=== PATIENT | female | born 1945 | race Caucasian/White ===

== ENCOUNTER → 2017-12-06 | Day surgery (SDC) | payer OTHER, MEDICARE ==
[2017-11-09 13:09] LABS: BASO % 0.2 %; BASO ABS # 0.01 K/uL (0-0.2); EOS % 3.7 %; EOS ABS # 0.15 K/uL (0-0.5); HEMATOCRIT 35.8 % (37-47); HEMOGLOBIN 11.8 g/dL (12.0-16.0); IG# 0.01 K/uL (0.00-0.02); LYMPH % 21.4 %; LYMPH ABS # 0.86 K/uL (1.2-3.4); MEAN CORPUSCULAR HEMOGLOBIN 31.3 pg (25-34); MEAN PLATELET VOLUME 8.6 fL (7.4-10.4); MONO % 4.7 %; MONO ABS # 0.19 K/uL (0.11-0.59); NEUT % 69.8 %; PLATELET COUNT 150 K/uL (130-400); RED CELL DISTRIBUTION WIDTH CV 14.2 % (11.5-14.5); RED CELL DISTRIBUTION WIDTH SD 49.2 fL (36.4-46.3); WHITE BLOOD COUNT 4.02 K/uL (4.8-10.8)
[2017-11-09 13:38] LABS: BLOOD UREA NITROGEN 25 mg/dl (7-18); CALCIUM 9.1 mg/dl (8.5-10.1); CARBON DIOXIDE 28 mmol/L (21-32); CREATININE 1.13 mg/dl (0.60-1.20); GLUCOSE 72 mg/dl (70-99); POTASSIUM 4.4 mmol/L (3.5-5.1); SODIUM 139 mmol/L (136-145)
[2017-11-17 10:37] VITALS: BMI 27.0
--- NOTE | 2017-11-22 13:38 | PAT Medication Instructions ---
Service Date Nov 22, 2017. Current Home Medication List Ascorbic Acid (Vitamin C), 1 CAP PO QAM Aspirin (Aspirin Ec), 81 MG PO QAM Clopidogrel (Plavix), 75 MG PO QAM Latanoprost (Xalatan 0.005% Oph Heather), 1 DROPS OPB DAILY Multivitamin (Multivitamin), 1 TAB PO DAILY Pravastatin (Pravachol ), 40 MG PO QPM Probiotic Product (Probiotic), 1 CAP PO DAILY Sertraline (Zoloft), 25 MG PO QAM Timolol Maleate (Timolol 0.5% Oph Soln 15 Ml), 1 DROP OPB BID Medication Instructions For Your Scheduled Surgery - Check with surgeon and prescribing physician for instructions: Aspirin (Aspirin Ec), 81 MG PO QAM Clopidogrel (Plavix), 75 MG PO QAM - Hold the following medications the morning of surgery: Probiotic Product (Probiotic), 1 CAP PO DAILY Multivitamin (Multivitamin), 1 TAB PO DAILY Ascorbic Acid (Vitamin C), 1 CAP PO QAM - Take the following medications the morning of surgery with a sip of water: Latanoprost (Xalatan 0.005% Oph Heather), 1 DROPS OPB DAILY Sertraline (Zoloft), 25 MG PO QAM Timolol Maleate (Timolol 0.5% Oph Soln 15 Ml), 1 DROP OPB BID - Take the following medications as scheduled the night before surgery: Timolol Maleate (Timolol 0.5% Oph Soln 15 Ml), 1 DROP OPB BID Pravastatin (Pravachol ), 40 MG PO QPM If you have any questions please call us at [phone] or [phone] or [phone]
[2017-11-22 13:48] VITALS: BMI 28.0
--- NOTE | 2017-11-22 14:38 | DIAGNOSTIC IMAGING REPORT ---
CHEST 2 VIEWS ROUTINE CLINICAL HISTORY: PAT COMPARISON STUDY: No previous studies for comparison. FINDINGS: The bones soft tissues and hemidiaphragms are normal. The cardiomediastinal silhouette is normal. The lungs are clear. The pulmonary vasculature is normal. IMPRESSION: Negative chest. The above report was generated using voice recognition software. It may contain grammatical, syntax or spelling errors. Electronically signed by: Derek Bowers M.D. 11/22/2017 2:36 PM Dictated Date/Time: 11/22/2017 2:31 PM
[~2017-12-06] VITALS: Ht 154.9 cm; Wt 66.8 kg
[~2017-12-06] MED LIST: ASCO1CAP3 PO; ASPI81TA28 PO; ATROPINE SULFATE 0.1 MG/ML 5ML SYR IV PRN; CLOP1TAB15 PO; Cysto-Conray II 17.2% 250ML BOTTLE ONE; DEXAMETHASONE SOD INJ 4 MG/ML VIAL ONE; EpHEDrine SULFATE INJ 50 MG/ML AMP IV PRN; FENTANYL CITRATE INJ 50 MCG/1 ML 2 ML VIAL IV PRN; FENTANYL CITRATE INJ 50 MCG/1 ML 2 ML VIAL ONE; HYDROmorphone INJ 1 MG/ML SYR IV PRN; LACTATED RINGER'S 1000ML 1,000 ML IV SCH; LATA0.5S OPB; LIDOCAINE HCL 2% 2 ML VIAL (20MG/ML) ONE; MIDAZOLAM HCL 1 MG/ML 2ML VIAL ONE; MISCCAP80 PO; MULT-506 PO; ONDANSETRON INJ 2 MG/ML 2 ML VIAL IV PRN; ONDANSETRON INJ 2 MG/ML 2 ML VIAL ONE; OXYCODONE/ACETAMINOPHEN 5-325 TAB PO PRN; PRAV20TA PO; PROPOFOL IV EMULSION 10 MG/ML 20 ML VIAL ONE; SERT25TA PO; TMPOPS15 OPB
[2017-12-06 09:49] VITALS: BP 134/75; PULSE 81; TEMP 36.8; O2SAT 99; Ht 154.9 cm; Wt 66.8 kg
--- NOTE | 2017-12-06 13:15 | History & Physical Bridge Note ---
H&P Re-Evaluation Bridge Note: I have examined the patient, reviewed the History & Physical and in the interval since the performance of the History & Physical I have noted the following changes of clinical significance: No changes noted
--- NOTE | 2017-12-06 14:05 | Discharge Instructions ---
Discharge Instructions Date of Service Dec 06, 2017. Visit Reason for Visit: Left Hydronephrosis Discharge Discharge Diagnosis / Problem: left hydronephrosis Discharge Goals Goal(s): Therapeutic intervention Activity Recommendations Activity Limitations: resume your previous activity Exercise/Sports Limitations: rest today Shower/Bathe: no limitations Driving or Machine Use: resume 1 day after discharge Anesthesia . Post Anesthesia Instructions: If you have had General Anesthesia or IV Sedation: * Do not drive today. * Resume driving when surgeon permits. * Do not make important decisions or sign legal documents today. * Call surgeon for: 1. Temperature elevations greater than 101 degrees F. 2. Uncontrollable pain. 3. Excessive bleeding. 4. Persistent nausea and vomiting. 5. Medication intolerance (nausea, vomiting or rash). * For nausea and vomiting use only clear liquids such as: tea, soda, bouillon until nausea subsides, then gradually increase diet as tolerated. * If you have any concerns or questions, call your surgeon's office. If physician is unavailable and it is an emergency, call 911 or go to the nearest emergency room. . Diet Recommendations Recommended Home Diet: resume previous diet Procedures Procedures Performed: cystoscopy, left retrograde pyelogram with left stent exchange Pending Studies Studies pending at discharge: no Medical Emergencies . Who to Call and When: Medical Emergencies: If at any time you feel your situation is an emergency, please call 911 immediately. . Non-Emergent Contact Non-Emergency issues call your: Urologist Call Non-Emergent contact if: temperature is above 101.5, your pain is not controlled . . "Provider Documentation" section prepared by Dami Lazar. .
--- NOTE | 2017-12-06 14:09 | [facility] Operative Report ---
Operative Report Operative Date Dec 06, 2017. Pre-Operative Diagnosis left hydronephrosis Post-Operative Diagnosis same Procedure(s) Performed cystoscopy, left retrograde pyelogram with left stent exchange Surgeon Dr. Lazar Estimated Blood Loss 0ml Findings Cystoscopy showed a previously placed left ureteral stent retrograde showed some mild left hydronephrosis Specimens no specimens per surgeon Drains 6 German by 24 left ureteral stent Anesthesia Type MAC Complication(s) none Disposition yes Recovery Room / PACU Indications 72-year-old white female with left hydronephrosis previously treated with stent exchanges elsewhere Description of Procedure After the induction of an audible level of intravenous sedation and appropriate timeout patient was placed in the dorsolithotomy position. Lower abdomen genitalia were prepped with Hibiclens draped in sterile fashion. Routine cystoscopic exam was performed with the above-noted findings with the 30 and 70 degree lenses. Previously placed stent was grasped and brought out to the meatus. A 0.03 guidewire was passed through the stent up the left ureter under fluoroscopic guidance to position the renal pelvis. The old stent was removed. A 5 German open-ended catheter was passed over the wire which was then removed and a retrograde pyelogram is performed confirming placement in the renal pelvis guidewire was then rethreaded through the open-ended catheter which was removed and then through the cystoscope and a 6 German by 24 cm left ureteral stent was passed over the wire under fluoroscopic guidance to position in the renal pelvis. Guidewire was removed there is good control at the bladder level. Patient's bladder was drained. Cystoscope and sheath were removed. All needle sponge and instrument counts were correct at the end of the case. Patient tolerated the procedure well and was taken recovery room in stable condition. I attest to the content of the Intraoperative Record and any orders documented therein. Any exceptions are noted below.
--- NOTE | 2017-12-06 14:29 | Anesthesiology Progress Note ---
Anesthesia Post Op Note Date & Time Dec 06, 2017 at 14:29 Vital Signs Pain Intensity: 0 Vital Signs Past 12 Hours Date Time Temp Pulse Resp B/P (MAP) Pulse Ox O2 Delivery O2 Flow Rate FiO2 12/06/17 14:25 36.3 72 18 135/75 98 Room Air 12/06/17 14:15 75 17 123/75 96 Room Air 12/06/17 14:05 83 20 129/76 100 Oxymask 10 12/06/17 13:56 36.5 75 16 113/69 99 Oxymask 10 12/06/17 09:49 36.8 81 18 134/75 (94) 99 Room Air Notes Mental Status: alert / awake / arousable, participated in evaluation Pt Amnestic to Procedure: Yes Nausea / Vomiting: adequately controlled Pain: adequately controlled Airway Patency, RR, SpO2: stable & adequate BP & HR: stable & adequate Hydration State: stable & adequate Anesthetic Complications: no major complications apparent
[2017-12-06 14:35] VITALS: BP 132/73; PULSE 70; TEMP 36.7; O2SAT 98
--- NOTE | 2017-12-06 15:00 | DIAGNOSTIC IMAGING REPORT ---
RETROGRADE INCLUDES KUB CLINICAL HISTORY: 72 years-old Female presenting with LEFT STENT PLACEMENT. TECHNIQUE: 5 fluoroscopic image(s) recorded as part of an intraoperative procedure. COMPARISON: Renal ultrasound from 12/07/2016 performed at an outside hospital. FINDINGS/IMPRESSION: A catheter was introduced into the left ureter over a guidewire. The left renal collecting system was opacified with contrast. Moderate to severe pelvocaliectasis. A left ureteral stent was placed. Please see surgical report for further details. Dose area product (mGy.m^2): [id number]. Fluoroscopy time: 24.7 seconds. Number or time of fluoroscopic spot images: 0. Electronically signed by: Jareth Sams M.D. 12/06/2017 2:59 PM Dictated Date/Time: 12/06/2017 2:55 PM
[2017-12-06 15:05] VITALS: BP 133/67; PULSE 75; O2SAT 96
== END | disposition home or self-care (01) ==
LOC: C.ACU 09:15
PROVIDERS: ATTEND Urology
DX: N13.30 Unspecified hydronephrosis (principal); I12.9 Hypertensive chronic kidney disease with stage 1 through stage 4 chronic kidney disease, or unspecified chronic kidney disease; N18.3 Chronic kidney disease, stage 3 (moderate); E78.00 Pure hypercholesterolemia, unspecified; H35.30 Unspecified macular degeneration; I74.5 Embolism and thrombosis of iliac artery; Z79.82 Long term (current) use of aspirin; Z79.02 Long term (current) use of antithrombotics/antiplatelets; K21.9 Gastro-esophageal reflux disease without esophagitis; G62.9 Polyneuropathy, unspecified; N26.1 Atrophy of kidney (terminal)